=== PATIENT | female | born 1950 | race Hispanic/Latino ===

== ENCOUNTER → 2018-09-13 | Day surgery (SDC) | payer MEDICARE ==
[2018-09-12 17:19] LABS: BASOPHILS # (AUTO) 0.1 (0.0-0.1); BASOPHILS % 0.7 % (0.0-1.0); EOSINOPHILS # (AUTO) 0.1 (0.0-0.4); EOSINOPHILS % 1.8 % (0.0-6.0); HEMATOCRIT 35.2 % (34.2-44.1); HEMOGLOBIN 12.4 g/dL (12.0-16.0); LYMPHOCYTES # (AUTO) 2.2 (1.0-3.2); LYMPHOCYTES % 30.8 % (18.0-39.1); MEAN CORPUSCULAR HEMOGLOBIN 31.2 pg (28-32); MEAN CORPUSCULAR HGB CONC 35.2 g/dL (31-35); MEAN CORPUSCULAR VOLUME 88.4 fL (81-99); MONOCYTES # (AUTO) 0.7 (0.2-0.8); NEUTROPHILS # (AUTO) 4.2 (2.1-6.9); NEUTROPHILS % 57.6 % (38.7-80.0); PLATELET COUNT 247 x10e3/uL (140-360); RED BLOOD COUNT 3.98 x10e6/uL (3.6-5.1); RED CELL DISTRIBUTION WIDTH 13.2 % (11.7-14.4)
[~2018-09-13] MED LIST: AMLODIPINE BESYL5 MG PO; CITALOPRAM HBR20 MG PO; FENTANYL CITRATE/PF 100MCG/2 ML INJ ONE; HYDROCHLOROTHIA25 MG PO; MIDAZOLAM HCL 2 MG/2 ML VIAL ONE; PROPOFOL IV EMULSION 10 MG/ML 50 ML VIAL ONE
--- OUTSIDE RECORDS SUMMARY | 2018-09-13 12:06 | XMS REPORT | Clinical Summary ---
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 7 Active amLODIPine (NORVASC) 5 mg 5 mg daily. 0 tablet 7 Active alendronate (FOSAMAX) 70 70 mg once a 0 MG tablet week. 7 Active acetaminophen (TYLENOL) Take 500 mg 0 500 MG tablet by mouth every 6 (six) hours as needed for mild pain. Active Problems Problem Noted Date Breast cancer in female 01/28/2017 Family History Medical History Relation Name Comments No Known Problems Father No Known Problems Mother Relation Name Status Comments Father Mother Social History Date Tobacco Use Types Packs/Day Years Used Never Smoker Alcohol Use Drinks/Week oz/Week Comments Yes Sex Assigned at Date Recorded Not on file Industry Job Start Date Occupation Not on file Not on file Not on file Travel End Travel History Travel Start No recent travel history available. Last Filed Vital Signs Not on file Plan of Treatment Health Maintenance Due Date Last Done Comments COLON CANCER SCREENING 10/13/1999 SHINGLES VACCINES ( of 10/13/1999 2) PNEUMOCOCCAL 2014 POLYSACCHARIDE VACCINE AGE 65 AND OVER PNEUMOCOCCAL-13 2014 INFLUENZA VACCINE 02/23/2018 BREAST CANCER SCREENING 01/28/2019 01/28/2017 Results Not on fileafter 09/12/2017 Insurance Payer Benefit Subscriber ID Type Phone Address Plan / Group [employer] xxxxxxxxx [facility] MEDICAID MEDICAID xxxxxxxxx Medicaid Advance Directives Patient has advance care planning documents on file. For more information, everette pino contact: Prashant Roberts [address] [place] [address]
--- OUTSIDE RECORDS SUMMARY | 2018-09-13 12:07 | XMS REPORT | Continuity of Care Document ---
Author Author [facility]ine [facility] Organization Interface Address Unknown Phone Unavailable Problems Problem Status Onset Date Classification Date Reported Comments Source DX: M54.5=LOW BACK PAIN Active 06/29/2017 [facility] Z17.0 Active 06/14/2017 [facility] C50.112 Active 03/02/2017 [facility] R94.5 - ABNORMAL RESULTS OF LIVER FUNC Active 01/03/2016 [facility] [place] MALIGNANT NEOPLASM OF CENTRAL PORTION OF Active [facility] SHOULDER Active [facility] LOW BACK PAIN Active [facility] OTHER OSTEOPOROSIS WITHOUT CURRENT PATHO Active [facility] Medications Medication Details Route Status Patient Instructions Ordering Provider Order Date Source Allergies, Adverse Reactions, Alerts Substance Category Reaction Severity Reaction type Status Date Reported Comments Source Immunizations Immunization Date Given Site Status Last Updated Comments Source Results Order Name Results Value Reference Range Date Interpretation Comments Source Spine lumbar wo contrast MRI Spine lumbar wo contrast MRI Clinical Indication: Lumbar back pain Comparison: None. TECHNIQUE: Multiplanar T1, T2, STIR weighted noncontrast MRI of the lumbar spine is performed. FINDINGS: There is lumbar lordosis. The vertebral body heights are maintained. There is grade 1 anterolisthesis of L4/L5. The bone marrow signal is unremarkable. The conus terminates at L2. The distal cord is normal in size and signal characteristics. At T12-L1 there is no significant disc herniation, spinal canal stenosis or foraminal narrowing. At L1-L2 there is no significant disc herniation, spinal canal stenosis or foraminal narrowing. At L2-L3 there is a diffuse disc bulge with bilateral facet joint arthropathy without significant spinal canal stenosis or foraminal narrowing. At L3-L4 there is no significant disc herniation. There is mild ligamentum flavum hypertrophy and facet joint arthropathy without significant spinal canal stenosis or foraminal narrowing. At L4-L5 there is a diffuse disc bulge with ligamentum flavum hypertrophy and facet joint arthropathy causing moderate spinal canal stenosis and mild to moderate bilateral neural foraminal narrowing. At L5-S1 there is a mild disc bulge with bilateral facet joint without significant spinal canal stenosis or foraminal narrowing. 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 IMPRESSION: No fracture. Grade 1 anterolisthesis of L4/L5. Degenerative changes most pronounced at L4-L5. At L4-L5 there is moderate spinal canal stenosis and mild to moderate bilateral neural foraminal narrowing. : [id number] 07/17/2017 - - Read by: Farhana Riley MD Dictated Date/time: 07/18/17 15:42 Electronically Signed by: Farhana Riley MD 07/18/17 15:48 FINAL REPORT [facility] Bone Density Scan Bone Density Scan BONE DENSITY: HISTORY: Breast carcinoma. TECHNIQUE: Dual energy x-ray absorptiometry (DEXA) was done over the lumbar spine and left hip on a [employer] Discovery SL scanner. FINDINGS: The total T-score over the lumbar spine is -3.5, consistent with osteoporosis. The global T-score over the left hip is 0.4, consistent with normal bone density. The focal T-score over the left femoral neck is -0.4, consistent with normal bone density. The BMD is 0.829 g/sq cm. IMPRESSION: 1. Osteoporosis of the lumbar spine. 2. Normal global bone density of the left hip. 3. Normal bone density of the left femoral neck. FOR YOUR INFORMATION: The World Health Organization has established that OSTEOPOROSIS occurs at -2.5 or more standard deviations below peak bone mass (T-score). OSTEOPENIA occurs at -1.0 to -2.5 standard deviations (T-score) below peak bone mass. [id number] 06/14/2017 - - Read by: Vitaliy North MD Dictated Date/time: 06/14/17 15:09 Electronically Signed by: Vitaliy North MD 06/14/17 15:11 FINAL REPORT [facility] PET CT Breast CA initial staging PET CT Breast CA initial staging PET CT Breast CA initial staging TECHNIQUE: 16.1 mCis of FDG were administered intravenously and a series of overlapping images were obtained from the skull base to the proximal thighs utilizing a PET/CT hybrid device. The CT was utilized for attenuation correction and anatomic correlation and not as an independent diagnostic study. BLOOD GLUCOSE: 103 mg/dl COMPARISON: None CLINICAL HISTORY: C50.112 Malignant neoplasm of central portion of left female breast - CZJ=6796.32 mGy*cm , CTDIvol=11.73 mGy; status post left breast lumpectomy, January 2017 FINDINGS: HEAD AND NECK: No abnormal activity is visualized. CHEST: Ill-defined soft tissue density focus of mild increase in metabolic activity is noted in the left breast retroareolar region. Maximum SUV is 2.1. This may just reflect postsurgical change. Mild overlying skin thickening is noted. No enlarged or FDG avid lymph nodes are visualized in the left axilla. Mild cardiomegaly. ABDOMEN AND PELVIS: Fatty infiltration of liver. Status post cholecystectomy. Physiologic activity is visualized in the solid organs, genitourinary tract and gastrointestinal tract. SKELETON: No abnormal activity is visualized IMPRESSION: Ill-defined soft tissue density focus in the left breast may be largely related to postsurgical change. Correlation other clinical data and short-term imaging follow-up is recommended to definitively exclude residual neoplasm. No PET/CT evidence for local haroldo disease or distant metastasis. [id number] 03/11/2017 - - Read by: Amaury Carr MD Dictated Date/time: 03/12/17 08:43 Electronically Signed by: Amaury Carr MD 03/12/17 09:05 FINAL REPORT [facility] Liver US Liver US EXAM: Hepatic ultrasound. INDICATION: Abnormal LFTs. TECHNIQUE: Grayscale and Doppler sonogram of the liver. COMPARISON: None. FINDINGS: Pancreas: Not well evaluated. Aorta: Visualized portion is unremarkable. IVC: Visualized portion is unremarkable. Liver: Parenchyma: Diffuse increased echogenicity. Contour: Smooth. Length: 15 cm. Hepatic vessels: Portal veins: Normal direction flow. Monophasic waveform. Main portal vein measures 1.2 cm. Hepatic veins: Normal directional flow. Polyphasic waveform. Hepatic artery: Resistive index 0.69. Gallbladder: Intraluminal gallstones: Present. Wall: No thickening. Sonographic Wyatt sign: Negative. Common bile duct: Diameter: 0.4 cm. Other: None. IMPRESSION: 1. Diffuse increased echogenicity of the liver which likely represents fatty infiltration or other chronic hepatocellular disease. 2. Cholelithiasis without evidence of acute cholecystitis. 01/07/2016 - - Read by: Jose D Tomlinson MD Dictated Date/time: 01/07/16 08:35 Electronically Signed by: Jose D Tomlinson MD 01/07/16 08:38 FINAL REPORT [facility] Vital Signs Vital Sign Value Date Comments Source Encounters Location Location Details Encounter Type Encounter Number Reason For Visit Attending Provider ADM Date DC Date Status Source [facility] [id number] Fabiolanaun Mo 01/07/2016 01/08/2016 [facility] [place] [facility] [id number] Karen Deluna 03/11/2017 03/12/2017 [facility] Outpatient [id number] Karen Deluna 06/14/2017 06/15/2017 [facility] Outpatient [id number] Lacie Leach 07/17/2017 07/18/2017 [facility] Procedures Procedure Code Date Perfomer Comments Source
--- OUTSIDE RECORDS SUMMARY | 2018-09-13 12:07 | XMS REPORT | Summary of Care ---
Author Author [facility] Organization [facility] Address Unknown Phone Unavailable Encounter [facility] Encntr_[email or web address](FIN) [id number] Date(s): 07/17/17 - 07/17/17 [facility] [address] [place] [address]- Discharge Disposition: Home or Self Care Attending Physician: Lacie Leach MD Referring Physician: Lacie Leach MD Vital Signs No data available for this section Problem List No data available for this section Allergies, Adverse Reactions, Alerts Substance Reaction Severity Status NKDA Active Medications No data available for this section Results No data available for this section Immunizations No data available for this section Procedures No data available for this section Social History No data available for this section Assessment and Plan No data available for this section
--- OUTSIDE RECORDS SUMMARY | 2018-09-13 12:07 | XMS REPORT | Summary of Care ---
Author Author [facility] Organization [facility] Address Unknown Phone Unavailable Encounter [facility] [email or web address](HAILY) [id number] Date(s): 03/11/17 - 03/11/17 [facility] [address] [place] [address]- Discharge Disposition: Home or Self Care Attending Physician: Karen Deluna MD Referring Physician: Karen Deluna MD Vital Signs No data available for [...]
--- OUTSIDE RECORDS SUMMARY | 2018-09-13 12:07 | XMS REPORT | Summary of Care ---
Author Author [facility] Organization [facility] Address Unknown Phone Unavailable Encounter [facility] [email or web address](FIN) [id number] Date(s): 06/14/17 - 06/14/17 [facility] [address] [place] [address]- Discharge Disposition: Home or Self Care Attending Physician: Karen Deluna MD Vital Signs No [...]
[2018-09-13 17:10] VITALS: BP 129/84
== END | disposition home or self-care (01) ==
LOC: OR 12:05
PROVIDERS: ATTEND Internal Medicine Gastroenterology
DX: Z12.11 Encounter for screening for malignant neoplasm of colon (principal); D12.2 Benign neoplasm of ascending colon; K63.3 Ulcer of intestine; K57.30 Diverticulosis of large intestine without perforation or abscess without bleeding; K64.8 Other hemorrhoids; R13.10 Dysphagia, unspecified; B96.81 Helicobacter pylori [H. pylori] as the cause of diseases classified elsewhere; I11.0 Hypertensive heart disease with heart failure; I50.9 Heart failure, unspecified; R05 Cough; M19.90 Unspecified osteoarthritis, unspecified site; F32.9 Major depressive disorder, single episode, unspecified; Z01.810 Encounter for preprocedural cardiovascular examination; Z01.812 Encounter for preprocedural laboratory examination; Z85.3 Personal history of malignant neoplasm of breast; Z90.12 Acquired absence of left breast and nipple; Z68.34 Body mass index [BMI] 34.0-34.9, adult
CPT/HCPCS: 36415; 45380; 45384; 85025; 93005; J2250; J2704; 45378

== ENCOUNTER → 2024-05-02 | Day surgery (SDC) | payer MEDICARE ==
[2024-04-28 13:10] LABS: BASOPHILS # (AUTO) 0.1 (0.0-0.1); BASOPHILS % 0.7 % (0.0-1.0); EOSINOPHILS # (AUTO) 0.2 (0.0-0.4); EOSINOPHILS % 2.4 % (0.0-6.0); HEMOGLOBIN 11.5 g/dL (12.0-16.0); LYMPHOCYTES # (AUTO) 2.3 (1.0-3.2); LYMPHOCYTES % 27.3 % (18.0-39.1); MEAN CORPUSCULAR HEMOGLOBIN 30.7 pg (28-32); MEAN CORPUSCULAR HGB CONC 31.9 g/dL (31-35); MEAN CORPUSCULAR VOLUME 96.3 fL (81-99); MONOCYTES # (AUTO) 0.8 (0.2-0.8); MONOCYTES % 9.9 % (4.4-11.3); NEUTROPHILS % 59.3 % (38.7-80.0); PLATELET COUNT 239 x10e3/uL (140-360); RED BLOOD COUNT 3.74 x10e6/uL (3.6-5.1); RED CELL DISTRIBUTION WIDTH 14.2 % (11.7-14.4); WHITE BLOOD COUNT 8.36 x10e3/uL (4.8-10.8)
[~2024-05-02] MED LIST changes: +ASPIRIN81 MG PO; -FENTANYL CITRATE/PF 100MCG/2 ML INJ ONE; +LIDOCAINE HCL 2% LOCAL INJ 5 ML SDV VIAL INJ ONE; +LIPITOR10 MG PO; +LOSARTAN POTAS100 MG PO; -MIDAZOLAM HCL 2 MG/2 ML VIAL ONE; +OMEPRAZOLE40 MG PO; +PROPOFOL IV EMULSION 10 MG/ML 20 ML VIAL ONE; -PROPOFOL IV EMULSION 10 MG/ML 50 ML VIAL ONE
[2024-05-02] MEDS: LACTATED RINGER'S 1,000 ML ONE (09:25)
[2024-05-02 11:03] VITALS: TEMP 97.2
[2024-05-02 11:23] VITALS: BP 141/83; PULSE 62; RESP 18; O2SAT 97
== END | disposition home or self-care (01) ==
LOC: OR 07:56
PROVIDERS: ATTEND Internal Medicine Gastroenterology
DX: Z12.11 Encounter for screening for malignant neoplasm of colon (principal); D12.2 Benign neoplasm of ascending colon; K57.30 Diverticulosis of large intestine without perforation or abscess without bleeding; K64.8 Other hemorrhoids; I10 Essential (primary) hypertension; R01.1 Cardiac murmur, unspecified; E78.5 Hyperlipidemia, unspecified; M06.9 Rheumatoid arthritis, unspecified; M19.90 Unspecified osteoarthritis, unspecified site; Z01.810 Encounter for preprocedural cardiovascular examination; Z01.812 Encounter for preprocedural laboratory examination; Z79.82 Long term (current) use of aspirin; Z79.899 Other long term (current) drug therapy; Z68.34 Body mass index [BMI] 34.0-34.9, adult; Z85.3 Personal history of malignant neoplasm of breast; Z92.3 Personal history of irradiation
CPT/HCPCS: 36415; 45385; 85025; 88305; 93005; J2003; J2704; J7121